=== PATIENT | female | born 1955 | race Caucasian/White ===

== ENCOUNTER 2019-11-13 05:58 | Inpatient (IN) ==
--- NOTE | 2019-10-25 11:29 | PAT Medication Instructions ---
Medication Instructions Date of Service October 25, 2019 Home Medications amlodipine 10 mg PO HS atorvastatin 10 mg PO HS calcium carbonate [Calcium 600] 600 mg PO HS gabapentin 300 mg PO HS ibuprofen 200 mg PO Q6H PRN lisinopril-hydrochlorothiazide 1 tab PO QAM metoprolol succinate 50 mg PO HS multivitamin 1 tab PO QAM cholecalciferol (vitamin D3) [Vitamin D3] 25 mcg PO BID ASK your surgeon for instructions ibuprofen 200 mg PO Q6H PRN DO NOT take the morning of surgery lisinopril-hydrochlorothiazide 1 tab PO QAM multivitamin 1 tab PO QAM cholecalciferol (vitamin D3) [Vitamin D3] 25 mcg PO BID Take evening before surgery amlodipine 10 mg PO HS atorvastatin 10 mg PO HS calcium carbonate [Calcium 600] 600 mg PO HS gabapentin 300 mg PO HS metoprolol succinate 50 mg PO HS cholecalciferol (vitamin D3) [Vitamin D3] 25 mcg PO BID Other Notes If you have any questions please call us at [phone] or [phone] or [phone] or [phone]
--- NOTE | 2019-10-26 10:52 | Anesthesiology Consultation ---
Date of Service October 26, 2019 Assessment & Plan (1) Encounter for pre-operative examination: COVID Status: As of 10/25 assessment, patient denies travel to endemic area, known exposure/sick contacts, or symptoms of COVID19. Patient instructed that they and their household members must follow strict social distancing guidelines, wear a mask in public and avoid travel for 14 days prior to surgery. Preoperative COVID19 testing to be completed prior to surgery per surgeon's arra ngements. Patient made aware to self-isolate as much as possible between COVID testing and surgery. Chart Review Chart Review: Acceptable Risk for Surgery and Patient seen in Pre Admission Testing Teaching & Discussion Instructed NPO after midnight before surgery, except medications with 15 cc of water. Medication instructions provided according to the PAT guidelines. History Surgery Operation Date: 11/13/19 10:05 Proposed Procedures p L3-S1 Decompression fusion, L4-L5 Hardware Removal Spinal Cord Monitoring - Estevan Castillo, Height/Weight Height: 5 ft 4 in Weight: 94.9 kg Allergies Allergy/AdvReac Type Severity Reaction Status Date / Time Iodinated Contrast Media Allergy itchy Verified 10/18/19 09:17 Medications Home Medications Medication Instructions Recorded Confirmed Last Taken amlodipine 10 mg PO HS 02/28/19 10/18/19 03/15/19 22:00 atorvastatin 10 mg PO HS 02/28/19 10/18/19 03/15/19 22:00 calcium carbonate [Calcium 600] 600 mg PO HS 02/28/19 10/18/19 03/15/19 22:00 gabapentin 300 mg PO HS 02/28/19 10/18/19 03/15/19 20:00 ibuprofen 200 mg PO Q6H PRN 02/28/19 10/18/19 03/15/19 03:00 lisinopril-hydrochlorothiazide 1 tab PO QAM 02/28/19 10/18/19 03/15/19 08:00 metoprolol succinate 50 mg PO HS 02/28/19 10/18/19 03/15/19 22:00 multivitamin 1 tab PO QAM 02/28/19 10/18/19 03/15/19 08:00 cholecalciferol (vitamin D3) 25 mcg PO BID 10/18/19 10/18/19 Unknown [Vitamin D3] Past Medical History Medical History History of depression Hyperlipidemia Hypertension Osteoarthritis Spinal stenosis Exercise / Class Metabolic Activity II 4-5 Yardwork/Stairs/Walk up hill Past Family History Family History Mother Family history of diabetes mellitus Grandmother (Maternal) Family history of diabetes mellitus Other No family history of adverse response to anesthesia Past Surgical History Surgical History History of arthroscopy of left knee 03/16/2019 [place] History of colonoscopy History of lumbar fusion History of tooth extraction History of tubal ligation Past Anesthesia History No Hx of Anesthesia Complications and No Family Hx of Anesthesia Complications History of PONV No Hx of PONV and No Hx of Motion Sickness Social History Smoking Status: Former smoker Do You Dip or Chew Tobacco: No Smoking End Date: quit 2010 Hx Alcohol Use: Yes alcohol intake frequency: holidays/special occasions only Hx Substance Use: No substance use type: does not use Review of Systems Pt denies any recent chest pain, shortness of breath, palpitations, cough, fever, URI, or uncontrolled acid reflux. Physical Exam Vital Signs BP: 126/78 P: 56bpm SPO2: 98% RA T: 98.3 F R: 16 ENMT Mouth: + dentition abnormality (missing many lower molars); no chipped teeth and no loose teeth Thyromental Distance: > or= 3.5 Finger Breadths Mallampati Class: II Neck normal visual inspection; neck extension not limited Respiratory normal respiratory effort Auscultation: lungs clear to auscultation bilaterally Cardiovascular Rate/Rhythm: regular rhythm and + bradycardic Heart Sounds: no murmur Extremities: no edema Testing Laboratory Results 10/26/19 11:01 10/26/19 11:01 PT 10.3 Seconds (9.0-12.0) 10/26/19 11:01 INR 1.0 (0.9-1.1) 10/26/19 11:01 APTT 27.9 Seconds (21.0-31.0) 10/26/19 11:01 Urine Color Yellow 10/26/19 Unknown Urine Appearance Clear (Clear) 10/26/19 Unknown Urine pH 7.0 (4.5-7.5) 10/26/19 Unknown Ur Specific [place] 1.010 (1.000-1.030) 10/26/19 Unknown Urine Protein Negative (Negative) 10/26/19 Unknown Urine Glucose (UA) Negative (Negative) 10/26/19 Unknown Urine Ketones Negative (Negative) 10/26/19 Unknown Urine Nitrite Negative (Negative) 10/26/19 Unknown Ur Leukocyte Esterase Trace (Negative) H 10/26/19 Unknown Urine WBC (Auto) 5-10 /hpf (0-5) H 10/26/19 Unknown Urine RBC (Auto) 0-4 /hpf (0-4) 10/26/19 Unknown U Hyaline Cast (Auto) 0 /lpf (0-5) 10/26/19 Unknown U Epithel Cells (Auto) 0-5 /lpf (0-5) 10/26/19 Unknown Urine Bacteria (Auto) Negative (Negative) 10/26/19 Unknown Blood Type AB Positive 10/26/19 11:01 Antibody Screen NEGATIVE 10/26/19 11:01 Electrocardiogram Date: 02/14/19 Findings: + NSR @ (73bpm) Possible LAE. Chest X-Ray Date: 02/14/19 Findings: + NAD
[2019-10-26 12:20] LABS: Basophils # (auto) 0.04 K/uL (0-0.2); Basophils % (auto) 0.5 %; Eosinophils # (auto) 0.12 K/uL (0-0.5); Eosinophils % (auto) 1.6 %; Hemoglobin 14.1 g/dL (12.0-16.0); Immature Granulocytes # (auto) 0.01 K/uL (0.00-0.02); Immature Granulocytes % (auto) 0.1 %; Lymphocytes # (auto) 3.03 K/uL (1.2-3.4); Lymphocytes % (auto) 41.3 %; Mean Corpuscular Hgb Conc 32.8 g/dL (32-36); Mean Corpuscular Volume 88.3 fL (80-100); Mean Platelet Volume 9.9 fL (7.4-10.4); Monocytes # (auto) 0.48 K/uL (0.11-0.59); Monocytes % (auto) 6.5 %; Neutrophils # (auto) 3.66 K/uL (1.4-6.5); Platelet Count 342 K/uL (130-400); RDW Coefficient of Variation 13.7 % (11.5-14.5); RDW Standard Deviation 44.3 fL (36.4-46.3); Red Blood Count 4.87 M/uL (4.2-5.4); White Blood Count 7.34 K/uL (4.8-10.8)
[2019-10-26 12:24] LABS: Appearance Urine Clear (Clear); Bacteria Urine Automated Negative (Negative); Bilirubin Urine Negative (Negative); Blood Urine Negative (Negative); Cast Urine Automated 0 /lpf (0-5); Color Urine Yellow; Epithelial Cell Urine Auto 0-5 /lpf (0-5); Glucose Urine UA Negative (Negative); Ketones Urine Negative (Negative); Leukocyte Esterase Urine Trace (Negative); Nitrite Urine Negative (Negative); Protein Urine Negative (Negative); RBC Urine Automated 0-4 /hpf (0-4); Urobilinogen Urine Negative (Negative)
[2019-10-26 12:31] LABS: Partial Thromboplastin Time 27.9 Seconds (21.0-31.0); Prothrombin Time 10.3 Seconds (9.0-12.0)
[2019-10-26 12:33] LABS: BUN Creatinine Ratio 17.5 (10-20); Calcium 10.1 mg/dl (8.5-10.1); Creatinine Clr Calc Pharmacy 84.7 ml/min; Est GFR (African American) 98.5; Potassium 4.5 mmol/L (3.5-5.1)
[2019-11-13] MEDS ORDERED: CeleBREX 200 MG CAP PO SCH (06:00)
[2019-11-13] MEDS ORDERED: GABAPENTIN 300 MG CAP PO SCH (06:00)
[2019-11-13] MEDS ORDERED: LR 15ML/HR IV SCH (06:00)
[2019-11-13] MEDS ORDERED: ACETAMINOPHEN 500 MG TAB PO SCH (06:00)
[2019-11-13] MEDS ORDERED: CEFAZOLIN 2000MG 2,000 MG/15 ML SYR IV SCH (06:00)
[2019-11-13] MEDS ORDERED: BUPIVACAINE 0.5 % 5 MG/1 ML MPF 30ML VIAL ONE (07:01)
[2019-11-13] MEDS ORDERED: EPINEPHrine INJ 1 MG/ML AMP ONE (07:01)
[2019-11-13] MEDS ORDERED: BACITRACIN INJ 50,000 UNIT VIAL ONE (07:01)
[2019-11-13] MEDS ORDERED: fentaNYL citrate 100 MCG/2 ML VIAL ONE (07:04)
[2019-11-13] MEDS ORDERED: MIDAZOLAM HCL 1 MG/ML 2ML VIAL ONE (07:04)
[2019-11-13] MEDS ORDERED: ATROPINE SULFATE 0.1 MG/ML 10ML SYR IV PRN (07:20)
[2019-11-13] MEDS ORDERED: ONDANSETRON INJ 2 MG/ML 2 ML VIAL IV PRN ×2 (07:20→11:24)
[2019-11-13] MEDS ORDERED: ePHEDrine sulfate 50 MG/ML AMP IV PRN (07:20)
[2019-11-13] MEDS ORDERED: fentaNYL citrate 100 MCG/2 ML VIAL IV PRN (07:20)
--- NOTE | 2019-11-13 07:31 | History & Physical Bridge Note ---
Date of Service November 13, 2019 History & Physical Bridge Note I have examined the patient, reviewed the History & Physical and in the interval since the performance of the History & Physical I have noted the following changes of clinical significance: no changes noted
--- NOTE | 2019-11-13 07:32 | History & Physical Report ---
Date of Service November 13, 2019 Assessment & Plan (1) Neurogenic claudication due to lumbar spinal stenosis: Admission and Anticipated Discharge Date Admission Date: Lumbar decompression fusion L3-4 L5-S1, L4-L5 hardware removal History of Present Illness Chief Complaint: Back and bilateral leg pain Primary Care Provider: Alan Devine This is a 64-year-old female well-known to me the presents with chronic persistent back and leg pain after failing course of nonoperative care is here for surgical intervention. Allergies Allergy/AdvReac Type Severity Reaction Status Date / Time Iodinated Contrast Media Allergy itchy Verified 11/13/19 06:15 Home Medications Home Medications Medication Instructions Recorded Confirmed Type amlodipine 10 mg PO HS 02/28/19 11/13/19 History atorvastatin 10 mg PO HS 02/28/19 11/13/19 History calcium carbonate [Calcium 600] 600 mg PO HS 02/28/19 11/13/19 History gabapentin 300 mg PO HS 02/28/19 11/13/19 History lisinopril-hydrochlorothiazide 1 tab PO QAM 02/28/19 11/13/19 History metoprolol succinate 50 mg PO HS 02/28/19 11/13/19 History multivitamin 1 tab PO QAM 02/28/19 10/18/19 History cholecalciferol (vitamin D3) 25 mcg PO BID 10/18/19 11/13/19 History [Vitamin D3] Past Med/Surg History Medical History History of depression Hyperlipidemia Hypertension Osteoarthritis Spinal stenosis Surgical History History of arthroscopy of left knee 03/16/2019 [place] History of colonoscopy History of lumbar fusion History of tooth extraction History of tubal ligation Family History Mother Family history of diabetes mellitus Grandmother (Maternal) Family history of diabetes mellitus Other No family history of adverse response to anesthesia Social History Smoking Status: Former smoker Smoking End Date: quit 2010; Second Hand Exposure: Yes ( was a smoker ( 13 years ago)); Do You Dip or Chew Tobacco: No; Tobacco Cessation Education Requested by Patient: No Hx Alcohol Use: Yes Hx Substance Use: No Preferred Language: Macedonian Communication Ability: Effective Opinion Polls Survey Worker Required: No Beliefs That Will Affect Care: None Current Living Situation: Alone Feels Safe at Home: Yes Safety Concerns: Feels Safe At This Time Physical Exam Physical Exam: Patient is alert and oriented neurologically intact. Heart regular rate and rhythm. Lungs clear to auscultation. Results & Data ([facility]) Vital Signs (Past 12 Hours) Vital Signs Temp Pulse Resp BP Pulse Ox 11/13/19 06:28 36.7 C 59 L 16 137/61 99
[2019-11-13] MEDS ORDERED: GLYCOPYRROLATE 0.2 MG/ML VIAL ONE (09:35)
[2019-11-13] MEDS ORDERED: ROCURONIUM BROMIDE 10 MG/ML 5 ML VIAL IV ONE (09:35)
[2019-11-13] MEDS ORDERED: LIDOCAINE HCL 2% 2 ML VIAL/AMP(20MG/ML) INFIL ONE (09:35)
[2019-11-13] MEDS ORDERED: PROPOFOL IV EMULSION 10 MG/ML 20 ML VIAL IV ONE (09:35)
[2019-11-13] MEDS ORDERED: SUCCINYLCHOLINE CHLORIDE 20 MG/ML 10 ML VIAL IV ONE (09:35)
[2019-11-13] MEDS ORDERED: NEOSTIGMINE METHYLSULFATE 1 MG/ML 10ML VIAL ONE (09:35)
[2019-11-13] MEDS ORDERED: ONDANSETRON INJ 2 MG/ML 2 ML VIAL ONE (09:35)
[2019-11-13] MEDS ORDERED: DEXAMETHASONE SOD INJ 4 MG/ML VIAL ONE (09:35)
[2019-11-13] MEDS ORDERED: HYDROmorphone INJ 2 MG/ML SYR/VIAL ONE (09:35)
[2019-11-13] MEDS ORDERED: FLOSEAL HEMOSTATIC MATRIX 10ML TOP ONE (10:01)
--- NOTE | 2019-11-13 10:05 | Operative Report ---
Post Operative Report Pre & Post Diagnosis Operation Date: 11/13/19 07:45 Pre-Op Diagnosis: Spinal Stenosis, Lumbar Region with Neurogenic Claudication Post-Op Diagnosis: Spinal Stenosis, Lumbar Region with Neurogenic Claudication I identified the patient and participated in the time-out.: Yes Procedure Operation Date: 11/13/19 07:45 Actual Procedures #1 removal of posterior instrumentation L4-5 per #2 exploration of fusion L4-5. #3 lumbar decompression with bilateral medial facetectomies and foraminotomies L2-3, L3-4 and L5-S1. #4 posterior spinal fusion L3-4 and L5-S1. #5 placement posterior segmental instrumentation L3-S1. #6 interbody fusion L3-4 and L4-5. #7 placement peek cage 12 x 22 mm at L3-4 and L4-5. #8 placement locally harve sted morselized autograft in the posterior gutters. #9 placement infuse collagen sponge plan master graft in the posterior lateral gutters and ostial amp and interbody space. Surgeon Estevan Castillo, Electro Tech Krissy Pierson Estimated Blood Loss 250 Findings See Below Patient is 5 foot 4 inches tall weighing over 94 kg with a BMI in excess of 35. Patient's body habitus did add significant technical difficulty requiring her deepest retractors and longus instruments in order to perform her procedure. This at least 50% increase to the operative time. Specimens None Indications This is a 64-year-old female who presents with above-mentioned diagnosis after failing a course of nonoperative care is here for the above-mentioned procedure. Description of Procedure Patient was met with identified informed consent obtained. Patient was then taken to the operative suite underwent an patient placed in a prone position the Young table on top of the River frame. All bony prominences well-padded eyes inspected to ensure no external pressure placed upon the. This point the lumbar spine is prepped and draped in a normal sterile fashion. Sharp dissection with the assistance of Bovie cautery was performed down to and exposing the lamina and transverse processes of L3 the instrumentation at L4 and L5 and the sacral ala bilaterally. I then proceeded move the hardware at L4 and L5 bilaterally explore the fusion mass noting it to be mature and intact. And then performed a complete laminectomy of L5 putting bilateral medial facetectomies and foraminotomies followed by complete laminectomy of L3 partial laminectomy of L2 again addressing medial facetectomies and foraminotomies to address all stenosis. Pedicle screws and placed in L3-L4-L5 and S1 levels and appropriate size radha placed. By way of a transforaminal approach on the left complete discectomy of L5-S1 was performed endplates curetted to subcortical bleeding bone and a 12 x 22 mm peek cage filled with osteo-bone graft tapped in position. Then proceeded to L3-[address] of a transforaminal approach on the left complete discectomy was performed endplates curetted to subcortical bleeding bone and a 12 x 22 mm peek cage filled osteo-bone graft tapped in position. The rods were then locked into final position bilaterally. The transverse processes of L2-3 L4-L5 and the sacral ala burred to subcortical bleeding bone. Infuse collagen sponge master graft local autograft was placed in the posterior gutters. 15 round MARCELINO drain inserted. Incision was then closed with 1 Vicryl in the fascia 2-0 Vicryl subcutaneously and 4 Monocryl for final skin closure. Steri-Strip sterile dressings placed. Patient waken taken PACU stable condition. Please note spinal cord monitoring was utilized at the procedure no changes noted. Lastly Krissy Pierson was present at the entire surgery involved the patient positioning complex portions of the surgery and final skin closure. I attest to the content of the Intraoperative Record and any orders documented therein. Any exceptions are noted below.
--- NOTE | 2019-11-13 10:18 | Fluoroscopy Report ---
INTRAOPERATIVE RADIOGRAPHS CLINICAL HISTORY: L3-S1 spinal fusion. Fluoroscopy time: 26 seconds. FINDINGS: 2 spot fluoroscopic views of the lumbar spine are presented. There has been discectomy at L 3-L4, L4-L5, and L5-S1 with laminectomy and posterior fusion from L3-S1. Interpedicular screws are pr esent at all levels. The orthopedic hardware appears intact. IMPRESSION: Intraoperative images from L3-S1 spinal fusion as above. Electronically signed by: Galo Mar M.D. 11/13/2019 10:17 AM
[2019-11-13] MEDS ORDERED: DO NOT ADMINISTER FLU VACCINE PRN (11:24)
[2019-11-13] MEDS ORDERED: ONDANSETRON 4 MG OD TAB PO PRN (11:24)
[2019-11-13] MEDS ORDERED: OXYCODONE HCL IR 5 MG TAB (IMMEDIATE RELEASE) PO PRN (11:24)
[2019-11-13] MEDS ORDERED: bisacodyL 10 MG SUPP PR PRN (11:24)
[2019-11-13] MEDS ORDERED: LORazepam 0.5 MG TAB PO PRN (11:24)
[2019-11-13] MEDS ORDERED: ALUMINUM/MAGNESIUM SUSP 30 ML UDC PO PRN (11:24)
[2019-11-13] MEDS ORDERED: PROMETHAZINE HCL 12.5 MG in SODIUM CHLORIDE 0.9% 50 ML IV PRN (11:24)
[2019-11-13] MEDS ORDERED: NALOXONE HCL 0.4 MG/1 ML VIAL/CARP IV PRN (11:24)
[2019-11-13] MEDS ORDERED: DO NOT ADMINISTER PNEUMOCOCCAL VACCINE PRN (11:24)
[2019-11-13] MEDS ORDERED: HYDROmorphone INJ 0.5 MG/0.5 ML SYR IV PRN (11:24)
[2019-11-13] MEDS ORDERED: FAMOTIDINE 20 MG TAB PO PRN (11:24)
[2019-11-13] MEDS ORDERED: MAGNESIUM HYDROXIDE SUSP 30 ML UDC PO PRN (11:24)
[2019-11-13] MEDS ORDERED: SOD PHOSPHATE/SOD BIPHOSPHATE ENEMA 132 ML BTL PR PRN (11:24)
[2019-11-13] MEDS ORDERED: HYDROmorphone INJ 1 MG/ML SYRINGE IV PRN (11:24)
[2019-11-13] MEDS ORDERED: LORazepam 0.5 MG/1 ML VIAL IV PRN (11:24)
[2019-11-13] MEDS ORDERED: METOCLOPRAMIDE HCL INJ 5 MG/ML 2 ML VIAL IV PRN (11:24)
--- NOTE | 2019-11-13 11:46 | Anesthesiology Progress Note ---
Date of Service November 13, 2019 Anesthesia Post Procedure Vital Signs Vital Signs: Temp Pulse Pulse Resp BP BP Pulse Ox 11/13/19 11:20 97.3 F L 59 L 18 126/73 100 11/13/19 11:05 97.3 F L 57 L 16 122/61 97 11/13/19 10:50 58 L 18 121/57 L 96 11/13/19 10:40 67 18 133/64 96 11/13/19 10:30 61 15 127/63 96 11/13/19 10:24 97.0 F L 73 16 125/64 99 11/13/19 06:28 98.1 F 59 L 16 137/61 99 Pain Intensity Back: Pain Intensity: 4 Transfer of Care Handoff Completed per policy Notes Mental Status: alert / awake / arousable and participated in evaluation Patient Amnestic to Procedure: Yes Nausea / Vomiting: adequately controlled Pain: adequately controlled Airway Patency, RR, SpO2: stable & adequate BP & HR: stable & adequate Hydration State: stable & adequate Anesthetic Complications: no major complications apparent and Pt Satisfied with anesthetic care
--- NOTE | 2019-11-13 11:56 | Consultation ---
Date of Consultation November 13, 2019 Assessment & Plan (1) Status post lumbar surgery: Post op day# 0 S/P removal instrumentation L4-L5, decompression L2-S1 & fusion L3-S1 by Dr Castillo EB#[id number] -pain management per ortho -wound management per ortho -PT/OT as appropriate -DVT prophylaxis per ortho -incentive spirometry -monitor H&H for acute blood loss anemia; pre-op Hgb: 14 (2) Hypertension: Stable -Continue metoprolol succinate, amlodipine -Hold lisinopril/HCTZ for tomorrow (3) Hyperlipidemia: -Continue atorvastatin DVT Prophylaxis -SCDs per ortho Disposition per primary service Follows with Dr Devine for routine care Pt was seen and care coordinated with Dr Kendrick. See addendum Pt will be followed by Dr Hankins starting 11/14/2019. Thank you for this consultation. We will follow the patient with you during their hospital stay. You can reach a [facility] via pager @ [phone]. Supervising Physician Co-Signing Physician Notes Pt was seen and examined. Agreed with Liana MANDUJANO exam, assessment and plan. 64 y/o F with PMH HTN, HLD, depression, s/p L2-S1 decompression fusion performed today by Dr. Castillo. Denies any chest pain, palpitation, dizziness and SOB. No postop complication. Continue pain management as per ortho. PT/OT evaluation. Monitor H/H. Continue incentive spirometry. Fall precaution. Continue monitor closely. MD Mireille History of Present Illness Requesting Physician: Dr Castillo Reason for Consultation: Post op medical management Attending Physician: Estevan Castillo DO History of Present Illness Pt is 64 y/o F with PMH HTN, HLD, depression seen in medical consultation s/p L2-S1 decompression fusion today by Dr. Castillo. Postop patient reports having some low back pain. Denies any extremity pain or paresthesias. Denies nausea, vomiting, CP, SOB, dizziness. Last BM 11/12/2019. Has Ortega cath in place. Denies fever/chills, diaphoresis, FONTANEZ, vision changes, neck pain, palpitations, cough, sore throat, choking, abdominal pain, extremity edema, rashes, urinary symptoms. Allergies Allergy/AdvReac Type Severity Reaction Status Date / Time Iodinated Contrast Media Allergy itchy Verified 11/13/19 06:15 Home Medications Home Medications Medication Instructions Recorded Confirmed Type amlodipine 10 mg PO HS 02/28/19 11/13/19 History atorvastatin 10 mg PO HS 02/28/19 11/13/19 History calcium carbonate [Calcium 600] 600 mg PO HS 02/28/19 11/13/19 History gabapentin 300 mg PO HS 02/28/19 11/13/19 History lisinopril-hydrochlorothiazide 1 tab PO QAM 02/28/19 11/13/19 History metoprolol succinate 50 mg PO HS 02/28/19 11/13/19 History multivitamin 1 tab PO QAM 02/28/19 10/18/19 History cholecalciferol (vitamin D3) 25 mcg PO BID 10/18/19 11/13/19 History [Vitamin D3] oxycodone 5 mg PO Q6H PRN #20 tab 11/13/19 Rx tramadol 50 mg PO Q6H PRN #20 tab 11/13/19 Rx Patient History Medical History (Updated 11/13/19 @ 11:55 by Liana Latham PA-C) History of depression Hyperlipidemia Hypertension Osteoarthritis Spinal stenosis Surgical History (Updated 11/13/19 @ 12:04 by Liana Latham PA-C) History of arthroscopy of left knee 03/16/2019 [place] History of colonoscopy History of lumbar fusion History of tooth extraction History of tubal ligation Family History Mother Family history of diabetes mellitus Grandmother (Maternal) Family history of diabetes mellitus Other No family history of adverse response to anesthesia Social History Smoking Status: Former smoker Smoking End Date: quit 2010; Second Hand Exposure: Yes ( was a smoker ( 13 years ago)); Do You Dip or Chew Tobacco: No; Tobacco Cessation Education Requested by Patient: No Hx Alcohol Use: Yes Hx Substance Use: No Preferred Language: [place] Verdean Communication Ability: Effective It Web Development Consultant Required: No Beliefs That Will Affect Care: None Current Living Situation: Alone Feels Safe at Home: Yes Safety Concerns: Feels Safe At This Time Review of Systems Review of Systems: All systems reviewed & are unremarkable except as noted in HPI & below Physical Exam Physical Exam: General: no distress, overweight Head: normocephalic, atraumatic Eyes: conjunctiva non-injected, anicteric ENT: normal inspection external ears, nose, mucous membranes moist Neck: supple, trachea midline Lungs: clear, no respiratory distress, no wheezing/rhonchi/rales CV: RRR, no murmur, no pretibial edema Abd: normal BS, soft, non-tender Back: surgical dressing in place, MARCELINO drain with serosanguineous drainage Ext: no calf tenderness; bilateral pedal pushes and pulls intact Neuro: A&O x 3, no focal deficits noted, normal affect Skin: warm, dry Results & Data ([facility]) Vital Signs (Past 12 Hours) Vital Signs Temp Pulse Pulse Resp BP BP Pulse Ox 11/13/19 11:20 36.3 C L 59 L 18 126/73 100 11/13/19 11:05 36.3 C L 57 L 16 122/61 97 11/13/19 10:50 58 L 18 121/57 L 96 11/13/19 10:40 67 18 133/64 96 11/13/19 10:30 61 15 127/63 96 11/13/19 10:24 36.1 C L 73 16 125/64 99 11/13/19 06:28 36.7 C 59 L 16 137/61 99
[2019-11-13] MEDS: TRAMADOL HCL 50 MG TABLET PO PRN ×2 (12:53→20:44)
[2019-11-13] MEDS: SODIUM CHLORIDE 0.9% 1000ML 1,000 ML IV SCH ×2 (12:53→20:44)
[2019-11-13] MEDS ORDERED: ACETAMINOPHEN 1,000 MG/100 ML VIAL IV PRN (14:00)
[2019-11-13] MEDS: CEFAZOLIN 2000MG 2,000 MG/15 ML SYR IV SCH ×2 (16:18→23:51)
[2019-11-13] MEDS: CALCIUM CARBONATE 1250MG TAB PO SCH (20:42)
[2019-11-13] MEDS: AMLODIPINE BESYLATE 5 MG TAB PO SCH (20:42)
[2019-11-13] MEDS: GABAPENTIN 300 MG CAP PO SCH (20:43)
[2019-11-13] MEDS: ATORVASTATIN 10 MG TAB PO SCH (20:43)
[2019-11-13] MEDS: CHOLECALCIFEROL 1,000 UNITS 25 MCG TAB PO SCH (20:43)
[2019-11-13] MEDS: METOPROLOL SUCC 50MG EXT REL TAB PO SCH (20:43)
[2019-11-13] MEDS: DOCUSATE SODIUM/SENNA 50/8.6MG TAB PO SCH (20:44)
[2019-11-14] MEDS: POLYETHYLENE (MIRALAX) 17 GM PACK PO SCH ×3 (05:47→17:28)
[2019-11-14 06:16] LABS: Hematocrit (blood only) 35.1 % (37-47); Hemoglobin 11.1 g/dL (12.0-16.0); Immature Granulocytes # (auto) 0.02 K/uL (0.00-0.02); Immature Granulocytes % (auto) 0.1 %; Lymphocytes # (auto) 1.77 K/uL (1.2-3.4); Lymphocytes % (auto) 12.4 %; Mean Corpuscular Hemoglobin 28.3 pg (25-34); Mean Corpuscular Hgb Conc 31.6 g/dL (32-36); Mean Corpuscular Volume 89.5 fL (80-100); Mean Platelet Volume 9.9 fL (7.4-10.4); Monocytes % (auto) 6.3 %; Neutrophils % (auto) 81.2 %; Platelet Count 313 K/uL (130-400); RDW Coefficient of Variation 14.3 % (11.5-14.5); RDW Standard Deviation 46.9 fL (36.4-46.3); Red Blood Count 3.92 M/uL (4.2-5.4); White Blood Count 14.29 K/uL (4.8-10.8)
[2019-11-14 06:49] LABS: BUN Creatinine Ratio 17.2 (10-20); Calcium 8.8 mg/dl (8.5-10.1); Creatinine Clr Calc Pharmacy 115.8 ml/min; Est GFR (African American) 114.8; Potassium 3.7 mmol/L (3.5-5.1)
[2019-11-14] MEDS: MULTIVITAMIN TAB PO SCH (08:32)
[2019-11-14] MEDS: CHOLECALCIFEROL 1,000 UNITS 25 MCG TAB PO SCH ×2 (08:32→20:27)
--- NOTE | 2019-11-14 08:38 | Hospitalist Progress Note ---
Date of Service November 14, 2019 Assessment & Plan (1) Status post lumbar surgery: Post op day# 1 S/P removal instrumentation L4-L5, decompression L2-S1 & fusion L3-S1 by Dr Castillo EBL 250ml; MARCELINO drain 450ml tolerated procedure well pain/wound management per ortho activity and therapy as directed by ortho continue to encourage incentive spirometry, on room air DVT prophylaxis per ortho (2) Anemia: pre op hgb 14, h&H 11.1 and 35.1 likely in setting of acute blood loss anemia as well as dilutional component (3) Leukocytosis: wbc 14.29k, afebrile like in setting of pre op steroids/surgery no s/sx of infection, monitor (4) Hypertension: blood pressure on low side 111/66 Continue metoprolol succinate, amlodipine with parameters Continue to hold lisinopril/HCTZ - reassess daily and resume when appropriate (5) Hyperlipidemia: Continue atorvastatin DVT Prophylaxis SCDs per ortho Disposition per primary service Follows with Dr Devine for routine care Pt was seen and care coordinated with Dr Hankins. See addendum Thank you for this consultation. We will follow the patient with you during their hospital stay. You [facility] via pager @ [phone]. Admission and Anticipated Discharge Date Admission Date: November 13, 2019 Supervising Physician Co-Signing Physician Notes Pt seen and examined by me, care coordinated with Hyacinth Patrick PA-C, please refer to her note above for further detail. Pt is a 64 y/o F with PMH HTN, HLD, depression, s/p L2-S1 decompression fusion performed by Dr. Castillo. Patient is currently sitting in a chair, comfortable, denies any chest pain, palpitation, dizziness and SOB. She has been ambulating in the hallway. Eduardo catheter was removed and she is voiding without difficulty. Continue pain management as per ortho. PT/OT evaluation. Monitor H/H. Continue incentive spirometry. Brent Hankins MD Subjective Pt seen and examined in room 324-1. Follow up Lumbar surgery by Dr. Castillo. Feels well this morning. Complains of back tightness and mild incisional discomfort, but otherwise feels well. So far tolerating regular diet this morning. Denies f/c/s, dizzy, CP, SOB, n/v/d. No flatus yet. She has eduardo cath in place. She is ready to begin therapy so she can go home. Review of Systems Review of Systems: All systems reviewed & are unremarkable except as noted in HPI & below Physical Exam Physical Exam: Gen: WD/WN, F, lying in bed, NAD, A&O x3 HEENT: Normocephalic, atraumatic, conjunctivae moist, sclerae anicteric, mucous membranes moist. Lung: Clear to Auscultation bilaterally, no wheezes/rales/rhonchi Heart: Regular rate, regular rhythm, no murmurs, rubs, or gallops Abdomen: Soft, NT, ND +BS x 4 Extremities: No edema, lumbar dressing CDI, MARCELINO Drain with serosanguineous drainage Skin: Warm, no rash, negative turgor. : eduardo cath in place with yellow urine Results & Data Results & Data ([facility]) Vital Signs (Past 12 Hours) Vital Signs Temp Pulse Resp BP Pulse Ox 11/14/19 07:05 36.4 C L 53 L 16 111/66 95 11/14/19 02:39 36.7 C 68 16 112/66 97 11/13/19 23:48 36.6 C 77 16 116/64 98 11/13/19 20:39 68 16 125/72 95 Laboratory Results Short CBC 11/14/19 Range/Units 05:14 WBC 14.29 H (4.8-10.8) K/uL Hgb 11.1 L (12.0-16.0) g/dL Hct 35.1 L (37-47) % Plt Count 313 (130-400) K/uL BMP 11/14/19 05:14 Sodium 138 Potassium 3.7 Chloride 106 Carbon Dioxide 27 BUN 9 Creatinine 0.54 L Glucose 105 H Calcium 8.8 Medications Administered Amlodipine Besylate (Amlodipine Besylate 5 Mg Tab) 10 mg PO HS KEITH Stop: 12/13/19 20:59 Last Admin: 11/13/19 20:42 Dose: 10 mg Documented by: [id number] Atorvastatin Calcium (Atorvastatin 10 Mg Tab) 10 mg PO HS KEITH Stop: 12/13/19 20:59 Last Admin: 11/13/19 20:43 Dose: 10 mg Documented by: [id number] Calcium Carbonate (Calcium Carbonate 1250mg Tab) 1,250 mg PO HS KEITH Stop: 12/13/19 20:59 Last Admin: 11/13/19 20:42 Dose: 1,250 mg Documented by: [id number] Gabapentin (Gabapentin 300 Mg Cap) 300 mg PO HS KEITH Stop: 12/13/19 20:59 Last Admin: 11/13/19 20:43 Dose: 300 mg Documented by: [id number] Acetaminophen (Ofirmev) 1,000 mg in 100 mls @ 400 mls/hr IV Q8H PRN PRN Reason: MILD Pain Rating 1,2,3 Stop: 11/14/19 13:59 Last Infusion: 11/14/19 01:57 Dose: 0 mls/hr Documented by: [id number] Admin: 11/14/19 00:22 Dose: 400 mls/hr Documented by: [id number] Metoprolol Succinate (Metoprolol Succ 50mg Ext Rel Tab) 50 mg PO HS KEITH Stop: 12/13/19 20:59 Last Admin: 11/13/19 20:43 Dose: 50 mg Documented by: [id number] Multivitamins (Multivitamin Tab) 1 tab PO QAM KEITH Stop: 12/14/19 08:59 Last Admin: 11/14/19 08:32 Dose: 1 tab Documented by: [id number] Polyethylene Glycol (Polyethylene (Miralax) 17 Gm Pack) 17 gm PO Q6 KEITH Stop: 12/14/19 05:59 Last Admin: 11/14/19 05:47 Dose: 17 gm Documented by: [id number] Senna/Docusate Sodium (Docusate Sodium/Senna 50/8.6mg Tab) 2 tab PO HS KEITH Stop: 12/13/19 20:59 Last Admin: 11/13/19 20:44 Dose: 2 tab Documented by: [id number] Tramadol HCl (Tramadol Hcl 50 Mg Tablet) 50 - 100 mg PO Q4H PRN PRN Reason: Moderate-Severe Pain & Pre PT Stop: 12/13/19 11:23 Last Admin: 11/13/19 20:44 Dose: 100 mg Documented by: [id number] Admin: 11/13/19 12:53 Dose: 100 mg Documented by: [id number] Vitamin D (Cholecalciferol 1,000 Units 25 Mcg Tab) 1,000 units PO BID KEITH Stop: 12/13/19 20:59 Last Admin: 11/14/19 08:32 Dose: 1,000 units Documented by: [id number] Admin: 11/13/19 20:43 Dose: 1,000 units Documented by: [id number] Discontinued Medications Acetaminophen (Acetaminophen 500 Mg Tab) 1,000 mg PO PREOP KEITH Stop: 11/13/19 18:00 Last Admin: 11/13/19 06:39 Dose: 1,000 mg Documented by: [id number] Bacitracin (Bacitracin Inj 50,000 Unit Vial) Confirm Administered Dose 50,000 units .ROUTE .STK-MED ONE Stop: 11/13/19 07:02 Last Admin: 11/13/19 08:42 Dose: 50,000 units Documented by: [id number] Bupivacaine HCl (Bupivacaine 0.5 % 5 Mg/1 Ml Mpf 30ml Vial) Confirm Administered Dose 30 ml .ROUTE .STK-MED ONE Stop: 11/13/19 07:02 Last Admin: 11/13/19 08:42 Dose: 30 ml Documented by: [id number] Celecoxib (Celebrex 200 Mg Cap) 200 mg PO PREOP KEITH Stop: 11/13/19 18:00 Last Admin: 11/13/19 06:39 Dose: 200 mg Documented by: [id number] Epinephrine HCl (Epinephrine Inj 1 Mg/Ml Amp) Confirm Administered Dose 1 mg .ROUTE .STK-MED ONE Stop: 11/13/19 07:02 Last Admin: 11/13/19 08:41 Dose: 0.15 mg Documented by: [id number] Gabapentin (Gabapentin 300 Mg Cap) 300 mg PO PREOP KEITH Stop: 11/13/19 18:00 Last Admin: 11/13/19 06:39 Dose: 300 mg Documented by: [id number] Cefazolin Sodium (Ancef 2000mg) 2,000 mg in 15 mls @ 3.75 mls/min IV PREOP KEITH; Protocol Stop: 11/13/19 18:00 Last Admin: 11/13/19 07:42 Dose: 3.75 mls/min Documented by: [id number] Lactated Ringer's (Lr) 1,000 mls @ 15 mls/hr IV .Q24H KEITH Stop: 11/14/19 05:59 Last Infusion: 11/13/19 07:42 Dose: 0 mls/hr Documented by: [id number] Admin: 11/13/19 06:39 Dose: 15 mls/hr Documented by: [id number] Cefazolin Sodium (Ancef 2000mg) 2,000 mg in 15 mls @ 3.75 mls/min IV Q8H KEITH; Protocol Stop: 11/14/19 00:03 Last Admin: 11/13/19 23:51 Dose: 3.75 mls/min Documented by: [id number] Admin: 11/13/19 16:18 Dose: 3.75 mls/min Documented by: [id number] Sodium Chloride (Nss 1000ml) 1,000 mls @ 100 mls/hr IV .Q10H [facility] Stop: 12/13/19 11:23 Last Infusion: 11/14/19 05:35 Dose: 0 mls/hr Documented by: [id number] Admin: 11/13/19 20:44 Dose: 100 mls/hr Documented by: [id number] Infusion: 11/13/19 20:44 Dose: 100 mls/hr Documented by: [id number] Admin: 11/13/19 12:53 Dose: 100 mls/hr Documented by: [id number] Miscellaneous ( Floseal Hemostatic Matrix 10ml) 10 ml TOP ONCE ONE Stop: 11/13/19 10:02 Last Admin: 11/13/19 10:01 Dose: 20 ml Documented by: [id number]
[2019-11-14] MEDS ORDERED: LISINOPRIL/HCTZ 20/25MG 1 TAB PO SCH (09:00)
[2019-11-14] MEDS: ACETAMINOPHEN 500 MG TAB PO PRN ×2 (10:20→23:55)
--- NOTE | 2019-11-14 13:12 | Orthopedic Progress Note ---
Date of Service November 14, 2019 Assessment & Plan (1) Neurogenic claudication due to lumbar spinal stenosis: Admission and Anticipated Discharge Date Admission Date: November 13, 2019 At this time we will continue physical therapy monitor MARCELINO output anticipate discharge home in the next few days. Subjective Back pain controlled leg symptoms markedly improved. Physical Exam Physical Exam: Patient is good strength testing appears comfortable. Results & Data ([facility]) Vital Signs (Past 12 Hours) Vital Signs Temp Pulse Resp BP Pulse Ox 11/14/19 12:00 36.5 C 53 L 16 105/66 99 11/14/19 07:05 36.4 C L 53 L 16 111/66 95 11/14/19 02:39 36.7 C 68 16 112/66 97
[2019-11-14] MEDS: TRAMADOL HCL 50 MG TABLET PO PRN (17:18)
[2019-11-14] MEDS: DOCUSATE SODIUM/SENNA 50/8.6MG TAB PO SCH (20:23)
[2019-11-14] MEDS: METOPROLOL SUCC 50MG EXT REL TAB PO SCH (20:27)
[2019-11-14] MEDS: GABAPENTIN 300 MG CAP PO SCH (20:27)
[2019-11-14] MEDS: ATORVASTATIN 10 MG TAB PO SCH (20:27)
[2019-11-14] MEDS: CALCIUM CARBONATE 1250MG TAB PO SCH (20:27)
[2019-11-14] MEDS: AMLODIPINE BESYLATE 5 MG TAB PO SCH (20:27)
[2019-11-15] MEDS: TRAMADOL HCL 50 MG TABLET PO PRN ×3 (03:36→15:57)
[2019-11-15 06:10] LABS: Hematocrit (blood only) 32.4 % (37-47); Hemoglobin 10.4 g/dL (12.0-16.0); Mean Corpuscular Hemoglobin 28.9 pg (25-34); Mean Corpuscular Hgb Conc 32.1 g/dL (32-36); Mean Platelet Volume 9.7 fL (7.4-10.4); Platelet Count 263 K/uL (130-400); RDW Coefficient of Variation 14.3 % (11.5-14.5); RDW Standard Deviation 47.3 fL (36.4-46.3); White Blood Count 10.44 K/uL (4.8-10.8)
[2019-11-15 06:38] LABS: BUN Creatinine Ratio 20.4 (10-20); Calcium 8.5 mg/dl (8.5-10.1); Creatinine Clr Calc Pharmacy 99.2 ml/min; Est GFR (African American) 109.1; Est GFR (Non-African American) 94.1; Magnesium 1.7 mg/dl (1.8-2.4); Potassium 3.8 mmol/L (3.5-5.1)
[2019-11-15 06:39] LABS: Phosphorus 2.8 mg/dl (2.5-4.9)
[2019-11-15] MEDS ORDERED: MAGNESIUM OXIDE 400 MG TAB PO ONE (07:51)
[2019-11-15] MEDS: MULTIVITAMIN TAB PO SCH (08:10)
[2019-11-15] MEDS: CHOLECALCIFEROL 1,000 UNITS 25 MCG TAB PO SCH ×2 (08:10→20:54)
[2019-11-15] MEDS: DEXAMETHASONE SOD PHOSPHATE 8 MG in SYRINGE 0 ML IV SCH (08:11)
--- NOTE | 2019-11-15 08:53 | Hospitalist Progress Note ---
Date of Service November 15, 2019 Assessment & Plan (1) Status post lumbar surgery: Post op day# 2 S/P removal instrumentation L4-L5, decompression L2-S1 & fusion L3-S1 by Dr Castillo EBL 250ml; MARCELINO drain 640ml tolerated procedure well pain/wound management per ortho activity and therapy as directed by ortho continue to encourage incentive spirometry, on room air DVT prophylaxis per ortho (2) Anemia: pre op hgb 14, h&H 10.4 and 32.4 likely in setting of acute blood loss anemia as well as dilutional component (3) Hypomagnesemia: mag 1.7 oral mag supplementation ordered (4) Leukocytosis: resolved (5) Hypertension: blood pressure continues to be well controlled, 119/74 Continue metoprolol succinate, amlodipine with parameters Continue to hold lisinopril/HCTZ - reassess daily and resume when appropriate (6) Hyperlipidemia: Continue atorvastatin DVT Prophylaxis SCDs per ortho Disposition per primary service Follows with Dr Devine for routine care Pt was seen and care coordinated with Dr Hankins. See addendum Thank you for this consultation. We will follow the patient with you during their hospital stay. You [facility] via pager @ [phone]. Admission and Anticipated Discharge Date Admission Date: November 13, 2019 Supervising Physician Co-Signing Physician Notes Pt seen and examined by me, care coordinated with Hyacinth Patrick PA-C, please refer to her note above for further detail. Pt is a 64 y/o F with PMH HTN, HLD, depression, s/p L2-S1 decompression fusion performed by Dr. Castillo. Patient is currently sitting in a chair, comfortable, denies any chest pain, palpitation, dizziness and SOB. She has been ambulating in the hallway. Ortega catheter was removed yesterday and she has been voiding without difficulty. CTAB w/o any wheezing, rhonchi or crackles, heart sounds regular, abdomen soft, nontender nondistended positive bowel sounds. Continue pain management as per ortho. PT/OT evaluation. Hemoglobin down to 10.4, patient is without any symptoms. Monitor H/H. Continue incentive spirometry. Brent Hankins MD Subjective Patient was seen and examined in room 324. Follow-up postop day #2 lumbar surgery. She sitting up in bedside chair eating breakfast. She offers no complaints and otherwise feels well. She does have mild incisional discomfort. She is urinating without difficulty but does say she has some slight numbness when she wipes. She denies any incontinence of her bowel or bladder or marcos saddle anesthesia. She is moving her bowels. Tolerating therapy well and plan is to be discharged home tomorrow per patient. She denies fever, chills, sweats, judy st pain, shortness breath, nausea, vomiting, abdominal pain. Review of Systems Review of Systems: All systems reviewed & are unremarkable except as noted in HPI & below Physical Exam Physical Exam: Gen: WD/WN, female, sitting up in bedside chair, NAD, A&O x3 HEENT: Normocephalic, atraumatic, conjunctivae moist, sclerae anicteric, mucous membranes moist. Lung: Clear to Auscultation bilaterally, no wheezes/rales/rhonchi Heart: Regular rate, regular rhythm, no murmurs, rubs, or gallops Abdomen: Soft, NT, ND +BS x 4 Extremities: No edema Skin: Warm, no rash, negative turgor. Lumbar dressing CDI, MARCELINO drain with serosanguineous drainage Results & Data Results & Data ([facility]) Vital Signs (Past 12 Hours) Vital Signs Temp Pulse Resp BP Pulse Ox 11/15/19 08:00 36.6 C 57 L 16 119/74 94 11/14/19 23:00 36.7 C 68 18 116/71 96 Laboratory Results Short CBC 11/15/19 Range/Units 05:43 WBC 10.44 (4.8-10.8) K/uL Hgb 10.4 L (12.0-16.0) g/dL Hct 32.4 L (37-47) % Plt Count 263 (130-400) K/uL BMP 11/15/19 05:43 Sodium 140 Potassium 3.8 Chloride 107 Carbon Dioxide 29 BUN 13 Creatinine 0.63 Glucose 96 Calcium 8.5 Medications Administered Acetaminophen (Acetaminophen 500 Mg Tab) 1,000 mg PO Q8H PRN PRN Reason: MILD Pain Scale 1,2,3 & Pre PT Stop: 12/13/19 13:59 Last Admin: 11/14/19 23:55 Dose: 1,000 mg Documented by: [id number] Admin: 11/14/19 10:20 Dose: 1,000 mg Documented by: [id number] Amlodipine Besylate (Amlodipine Besylate 5 Mg Tab) 10 mg PO [facility] Stop: 12/13/19 20:59 Last Admin: 11/14/19 20:27 Dose: 10 mg Documented by: [id number] Admin: 11/13/19 20:42 Dose: 10 mg Documented by: [id number] Atorvastatin Calcium (Atorvastatin 10 Mg Tab) 10 mg PO KEITH Stop: 12/13/19 20:59 Last Admin: 11/14/19 20:27 Dose: 10 mg Documented by: [id number] Admin: 11/13/19 20:43 Dose: 10 mg Documented by: [id number] Calcium Carbonate (Calcium Carbonate 1250mg Tab) 1,250 mg PO [facility] Stop: 12/13/19 20:59 Last Admin: 11/14/19 20:27 Dose: 1,250 mg Documented by: [id number] Admin: 11/13/19 20:42 Dose: 1,250 mg Documented by: [id number] Gabapentin (Gabapentin 300 Mg Cap) 300 mg PO KEITH Stop: 12/13/19 20:59 Last Admin: 11/14/19 20:27 Dose: 300 mg Documented by: [id number] Admin: 11/13/19 20:43 Dose: 300 mg Documented by: [id number] Dexamethasone Sodium Phosphate (8 mg/ Syringe) 2 mls @ 1 mls/min IV DAILY KEITH Stop: 12/15/19 08:59 Last Admin: 11/15/19 08:11 Dose: 1 mls/min Documented by: [id number] Metoprolol Succinate (Metoprolol Succ 50mg Ext Rel Tab) 50 mg PO KEITH Stop: 12/13/19 20:59 Last Admin: 11/14/19 20:27 Dose: 50 mg Documented by: [id number] Admin: 11/13/19 20:43 Dose: 50 mg Documented by: [id number] Multivitamins (Multivitamin Tab) 1 tab PO QA KEITH Stop: 12/14/19 08:59 Last Admin: 11/15/19 08:10 Dose: 1 tab Documented by: [id number] Admin: 11/14/19 08:32 Dose: 1 tab Documented by: [id number] Senna/Docusate Sodium (Docusate Sodium/Senna 50/8.6mg Tab) 2 tab PO KEITH Stop: 12/13/19 20:59 Last Admin: 11/14/19 20:23 Dose: Not Given Documented by: [id number] Admin: 11/13/19 20:44 Dose: 2 tab Documented by: [id number] Tramadol HCl (Tramadol Hcl 50 Mg Tablet) 50 - 100 mg PO Q4H PRN PRN Reason: Moderate-Severe Pain & Pre PT Stop: 12/13/19 11:23 Last Admin: 11/15/19 03:36 Dose: 50 mg Documented by: [id number] Admin: 11/14/19 17:18 Dose: 50 mg Documented by: [id number] Admin: 11/13/19 20:44 Dose: 100 mg Documented by: [id number] Admin: 11/13/19 12:53 Dose: 100 mg Documented by: [id number] Vitamin D (Cholecalciferol 1,000 Units 25 Mcg Tab) 1,000 units PO BID KEITH Stop: 12/13/19 20:59 Last Admin: 11/15/19 08:10 Dose: 1,000 units Documented by: [id number] Admin: 11/14/19 20:27 Dose: 1,000 units Documented by: [id number] Admin: 11/14/19 08:32 Dose: 1,000 units Documented by: [id number] Admin: 11/13/19 20:43 Dose: 1,000 units Documented by: [id number] Discontinued Medications Acetaminophen (Acetaminophen 500 Mg Tab) 1,000 mg PO PREOP KEITH Stop: 11/13/19 18:00 Last Admin: 11/13/19 06:39 Dose: 1,000 mg Documented by: [id number] Bacitracin (Bacitracin Inj 50,000 Unit Vial) Confirm Administered Dose 50,000 units .ROUTE .STK-MED ONE Stop: 11/13/19 07:02 Last Admin: 11/13/19 08:42 Dose: 50,000 units Documented by: [id number] Bupivacaine HCl (Bupivacaine 0.5 % 5 Mg/1 Ml Mpf 30ml Vial) Confirm Administered Dose 30 ml .ROUTE .STK-MED ONE Stop: 11/13/19 07:02 Last Admin: 11/13/19 08:42 Dose: 30 ml Documented by: [id number] Celecoxib (Celebrex 200 Mg Cap) 200 mg PO PREOP KEITH Stop: 11/13/19 18:00 Last Admin: 11/13/19 06:39 Dose: 200 mg Documented by: [id number] Epinephrine HCl (Epinephrine Inj 1 Mg/Ml Amp) Confirm Administered Dose 1 mg .ROUTE .STK-MED ONE Stop: 11/13/19 07:02 Last Admin: 11/13/19 08:41 Dose: 0.15 mg Documented by: [id number] Gabapentin (Gabapentin 300 Mg Cap) 300 mg PO PREOP KEITH Stop: 11/13/19 18:00 Last Admin: 11/13/19 06:39 Dose: 300 mg Documented by: [id number] Cefazolin Sodium (Ancef 2000mg) 2,000 mg in 15 mls @ 3.75 mls/min IV PREOP KEITH; Protocol Stop: 11/13/19 18:00 Last Admin: 11/13/19 07:42 Dose: 3.75 mls/min Documented by: [id number] Lactated Ringer's (Lr) 1,000 mls @ 15 mls/hr IV .Q24H KEITH Stop: 11/14/19 05:59 Last Infusion: 11/13/19 07:42 Dose: 0 mls/hr Documented by: [id number] Admin: 11/13/19 06:39 Dose: 15 mls/hr Documented by: [id number] Acetaminophen (Ofirmev) 1,000 mg in 100 mls @ 400 mls/hr IV Q8H PRN PRN Reason: MILD Pain Rating 1,2,3 Stop: 11/14/19 13:59 Last Infusion: 11/14/19 01:57 Dose: 0 mls/hr Documented by: [id number] Admin: 11/14/19 00:22 Dose: 400 mls/hr Documented by: [id number] Cefazolin Sodium (Ancef 2000mg) 2,000 mg in 15 mls @ 3.75 mls/min IV Q8H KEITH; Protocol Stop: 11/14/19 00:03 Last Admin: 11/13/19 23:51 Dose: 3.75 mls/min Documented by: [id number] Admin: 11/13/19 16:18 Dose: 3.75 mls/min Documented by: [id number] Sodium Chloride (Nss 1000ml) 1,000 mls @ 100 mls/hr IV .Q10H KEITH Stop: 12/13/19 11:23 Last Infusion: 11/14/19 05:35 Dose: 0 mls/hr Documented by: [id number] Admin: 11/13/19 20:44 Dose: 100 mls/hr Documented by: [id number] Infusion: 11/13/19 20:44 Dose: 100 mls/hr Documented by: [id number] Admin: 11/13/19 12:53 Dose: 100 mls/hr Documented by: [id number] Miscellaneous ( Floseal Hemostatic Matrix 10ml) 10 ml TOP ONCE ONE Stop: 11/13/19 10:02 Last Admin: 11/13/19 10:01 Dose: 20 ml Documented by: [id number] Polyethylene Glycol (Polyethylene (Miralax) 17 Gm Pack) 17 gm PO Q6 KEITH Stop: 12/14/19 05:59 Last Admin: 11/14/19 17:28 Dose: Not Given Documented by: [id number] Admin: 11/14/19 11:26 Dose: 17 gm Documented by: [id number] Admin: 11/14/19 05:47 Dose: 17 gm Documented by: [id number]
--- NOTE | 2019-11-15 09:20 | Orthopedic Progress Note ---
Date of Service November 15, 2019 Assessment & Plan (1) Neurogenic claudication due to lumbar spinal stenosis: Admission and Anticipated Discharge Date Admission Date: November 13, 2019 At this time we will continue physical therapy monitor MARCELINO output anticipate discharge home tomorrow. Subjective Back pain controlled leg pain markedly improved. Physical Exam Physical Exam: Patient is ambulating without difficulty good strength testing. Results & Data ([facility]) Vital Signs (Past 12 Hours) Vital Signs Temp Pulse Resp BP Pulse Ox 11/15/19 08:00 36.6 C 57 L 16 119/74 94 11/14/19 23:00 36.7 C 68 18 116/71 96
[2019-11-15] MEDS: GABAPENTIN 300 MG CAP PO SCH (20:52)
[2019-11-15] MEDS: METOPROLOL SUCC 50MG EXT REL TAB PO SCH (20:53)
[2019-11-15] MEDS: AMLODIPINE BESYLATE 5 MG TAB PO SCH (20:53)
[2019-11-15] MEDS: ATORVASTATIN 10 MG TAB PO SCH (20:53)
[2019-11-15] MEDS: CALCIUM CARBONATE 1250MG TAB PO SCH (20:54)
[2019-11-15] MEDS: DOCUSATE SODIUM/SENNA 50/8.6MG TAB PO SCH (20:54)
[2019-11-16 06:00] LABS: Hematocrit (blood only) 31.9 % (37-47); Hemoglobin 10.4 g/dL (12.0-16.0)
[2019-11-16] MEDS: DEXAMETHASONE SOD PHOSPHATE 8 MG in SYRINGE 0 ML IV SCH (08:22)
[2019-11-16] MEDS: MULTIVITAMIN TAB PO SCH (08:23)
[2019-11-16] MEDS: CHOLECALCIFEROL 1,000 UNITS 25 MCG TAB PO SCH (08:23)
--- NOTE | 2019-11-16 08:45 | Discharge Summary ---
Date of Service November 16, 2019 Admission HPI Per Admitting Provider This is a 64-year-old female well-known to me the presents with chronic persistent back and leg pain after failing course of nonoperative care is here for surgical intervention. Principal Diagnosis Lumbar spinal stenosis with neurogenic claudication Discharge Data Allergies Allergy/AdvReac Type Severity Reaction Status Date / Time Iodinated Contrast Media Allergy itchy Verified 11/13/19 06:15 Consultations 11/13/19 11:24 Consult Case Management - Discharge Planning Routine Consult Hospitalist Routine Procedures Performed Operation Date: 11/13/19 07:45 Actual Procedures p L3-S1 Decompression Fusion, Spinal Cord Monitoring(Not Applicable) - Estevan Castillo DO s L4-L5 Hardware Removal(Not Applicable) - Estevan Castillo DO Ordered Studies 11/13/19 07:45 FL fluoroscopy <1hr Routine FL lumbar spine 2-3V Routine Hospital Course (1) Neurogenic claudication due to lumbar spinal stenosis: Patient underwent lumbar decompression fusion tolerated this well was taken to the orthopedic floor possibly. Postop day 1 she was up and ambulating progressed to postop day #2 and 3 MARCELINO drain decreasing probably. Excellent strength testing. Pain well controlled. Subsequent discharge home. Discharge orders instructions from the chart for further review. Total Time Total Time Spent Total Time Spent (In Minutes): 20 minutes Discharge Plan Discharge Items Patient Disposition: Home - Self-Care Reason For Visit: Spinal Stenosis, Lumbar Region with Neurogenic Cla Discharge Diagnosis: lumbar stensis Activity: As commented below Non-emergency contact: Primary Care Provider Call non-emergency contact if: you have any medication questions Follow-up/Referrals: Alan Devine [Primary Care Provider] - Diet: Regular Addtl Attending Provider Instructions: ACTIVITY RECOMMENDATIONS: SELF CARE INSTRUCTIONS AFTER THORACIC/LUMBAR FUSIONS 1. You may walk to your tolerance. It is good exercise for your legs and back. Expect some back and intermittent leg aches and pains. 2. You may perform "counter-top" level activities (make a sandwich, conner with a project, etc.). 3. No bending or lifting of more than 10 pounds or back twisting of any nature (roll like a log when turning in bed). 4. You may ride in a car for 20-30 minutes at a time. No driving until after your first visit with your doctor. 5. Frequent changes of position and restricting sitting to 30 minutes at a time will help limit the amount of back spasms and stiffness you may experience. 6. You may discontinue the use of ambulatory aids (cane, crutches, etc.) once your strength and confidence allow. 7. You may special machine stitcher the shower and let water strike your incision when you arrive home at least once daily. Do not take a tub bath, sit in a hot tub or go into a swimming pool until after your first recheck in the office. SPECIAL CARE INSTRUCTIONS: VERY IMPORTANT TO READ AND REVIEW A. Your surgical incision has been closed with a cosmetic suture under the skin that will dissolve in about 6 weeks. In 14 days, you can use a pair of clean scissors and cut the suture that is left outside of the skin at the ends of your incision. 1. The small skin tapes can be removed 7 days after surgery if they have not fallen off by that point. 2. You may keep the wound open to air as much as possible to promote healing after post-op day number 5 unless told otherwise by your doctor. 3. If you think the wound looks like it is becoming infected (redness or worsening drainage) and/or you are experiencing fever, chill or worsening back pain and muscle spasms, contact the office so that we may evaluate you as soon as possible. B. Complications are uncommon, but please contact us if you have any signs or symptoms of: 1. wound infection (fever higher than 102.5 degrees F, redness, separation of wound, drainage, or increasing pain from the incision) 2. blood clots in legs (pain, swelling, redness and warmth in legs) 3. urinary tract infection (fever higher than 102.5 degrees F, burning upon urination or increased frequency of urination) 4. nerve problems (inability to walk on your toes or heels, numbness, loss of bowel or bladder control) 5. any other symptoms that concern you C. Please call the office at if you have any concerns or questions about your operation or recovery. D. No smoking! Smoking drastically decreases the chance of a solid fusion. E. Do not take any anti-inflammatory medications (Indocin, Advil, Motrin, Aspirin, Naprosyn, etc.) as these may inhibit the chance of a solid fusion. Tylenol is okay to take for pain. MANAGING PAIN AFTER SPINAL SURGERY 1. Narcotic medication is intended for short-term use and will be provided for surgical pain. Surgical pain usually lasts for a period of 4-6 weeks. Narcotic medication includes Percocet, Vicodin, Darvocet, Tylenol #3 or Lortab. 2. Longer-term pain is more appropriately treated with non-narcotic medication such as Tylenol ES. 3. Muscle spasm is not appropriately treated with narcotics. Muscle relaxers such as Soma, Flexeril or Skelaxin can be used along with Tylenol ES. 4. Remember that we all live with some "aches and pains". This is not unusual or uncommon after an injury or as we get older. a. Back pain is expected and may include muscle spasms for 4 to 6 weeks after surgery. The pain should gradually improve. If the pain worsens for no apparent reason, please contact the office. b. Intermittent leg pain may also be experienced and should not be concerned about unless it worsens for no apparent reason. If so, please contact the office. 5. We will provide appropriate medication within the normal guidelines of their prescribed use. We will also be very cautious and aware of potential abuse and extended duration of patients' medication needs. a. Pain medications are for your comfort and to assist with sleep and rest so that the tissue can heal. They are not provided in order to return to normal activity and should not be used through the day. To do so or worsening pain at night can result from ongoing tissue damage and development of tolerance to the prescribed medicine. 6. Please allow 2-3 days to process refills. Prescriptions will not be mailed but must be picked up at the office. FOLLOW UP VISIT: Keep your scheduled follow-up appointment. Any questions, please call the office at . Pending Studies at Discharge: No Stand-Alone Forms: My [employer], Smoking Cessation Medications and DC Order Prescriptions: New tramadol 50 mg tablet 50 mg PO Q6H PRN (Reason: pain, moderate) Qty: 20 RF: 0 oxycodone 5 mg tablet 5 mg PO Q6H PRN (Reason: pain, severe) Qty: 20 RF: 0 Continued cholecalciferol (vitamin D3) [Vitamin D3] 25 mcg (1,000 unit) Capsule 25 mcg PO BID RF: 0 atorvastatin 10 mg Tablet 10 mg PO HS RF: 0 metoprolol succinate 50 mg Tablet Extended Release 24 Hr 50 mg PO HS RF: 0 amlodipine 10 mg Tablet 10 mg PO HS RF: 0 gabapentin 300 mg Capsule 300 mg PO HS RF: 0 lisinopril-hydrochlorothiazide 20-25 mg Tablet 1 tab PO QAM RF: 0 multivitamin Tablet 1 tab PO QAM RF: 0 calcium carbonate [Calcium 600] 600 mg calcium (1,500 mg) Tablet 600 mg PO HS RF: 0 Discharge Orders: Discharge Order (Routine); Ordered 11/16/19 Ordered By: Estevan Castillo Admission Data Admit Date/Time: 11/13/19 10:40 Attending Provider: Estevan Castillo Admit Provider: Estevan Castillo Primary Care Provider: Alan Devine Other Providers: Lew Hankins ; Lala Ovalle
--- NOTE | 2019-11-16 09:01 | Hospitalist Progress Note ---
Date of Service November 16, 2019 Assessment & Plan (1) Status post lumbar surgery: Post op day# 3 S/P removal instrumentation L4-L5, decompression L2-S1 & fusion L3-S1 by Dr Castillo EBL 250ml; MARCELINO drain 775ml tolerated procedure well Pt to be discharged to home today continue to follow therapy and activity guidelines per Dr. Castillo Pain/wound management per Dr. Castillo (2) Anemia: pre op hgb 14, h&H 10.4 and 31.9 likely in setting of acute blood loss anemia as well as dilutional component (3) Hypomagnesemia: mag 1.7 oral mag supplementation ordered (4) Leukocytosis: resolved (5) Hypertension: blood pressure continues to be well controlled, mildy elevated today 154/76 Continue metoprolol succinate, amlodipine with parameters Resume lisinopril/HCTZ (6) Hyperlipidemia: Continue atorvastatin DVT Prophylaxis SCDs per ortho Disposition D/C to home today Follows with Dr Devine for routine care Pt was seen and care coordinated with Dr Ovalle. See addendum Thank you for this consultation. We will follow the patient with you during their hospital stay. You can reach a [facility] via pager @ [phone]. Admission and Anticipated Discharge Date Admission Date: November 13, 2019 Supervising Physician Co-Signing Physician Notes Attending addendum The patient was seen and examined in medical floor She is a status post lumbar procedure Complains to have minimal pain at surgery site and denies any other significant symptoms On examination No apparent distress sitting on a chair Hemodynamically stable Chestclear HeartS1-S2, regular Abdomenbenign Extremities1+ edema bilaterally Her labs and imaging studies reviewed Agree with assessment and plan as outlined above by DELBERT Scott Dr Subjective Patient was seen and examined in room 324. Follow-up lumbar surgery by Dr. Castillo. She is doing well sitting up at bedside eating breakfast. Plan is to be discharged this morning. She overall feels well. She slept well last evening. She denies any fever, chills, sweats, dizziness, lightheadedness, shortness of breath, chest pain, nausea, vomiting. She is passing gas. She moved bowels yesterday. Therapy is going well. Review of Systems Review of Systems: All systems reviewed & are unremarkable except as noted in HPI & below Physical Exam Physical Exam: Gen: WD/WN, female, NAD, A&O x3 HEENT: Normocephalic, atraumatic, conjunctivae moist, sclerae anicteric, mucous membranes moist. Lung: Clear to Auscultation bilaterally, no wheezes/rales/rhonchi Heart: Regular rate, regular rhythm, no murmurs, rubs, or gallops Abdomen: Soft, NT, ND +BS x 4 Extremities: No edema, TEDS in place, obese lower ext Skin: Warm, no rash, negative turgor. Dressing CDI, MARCELINO drain with serosanguineous drainage minimal Results & Data Results & Data ([facility]) Vital Signs (Past 12 Hours) Vital Signs Temp Pulse Resp BP Pulse Ox 11/16/19 08:00 36.7 C 70 16 154/76 H 99 11/15/19 23:32 36.7 C 65 17 131/73 96 Laboratory Results Short CBC 11/16/19 Range/Units 05:14 Hgb 10.4 L (12.0-16.0) g/dL Hct 31.9 L (37-47) % Medications Administered Current Inpatient Medications Acetaminophen (Acetaminophen 500 Mg Tab) 1,000 mg PO Q8H PRN PRN Reason: MILD Pain Scale 1,2,3 & Pre PT Stop: 12/13/19 13:59 Last Admin: 11/14/19 23:55 Dose: 1,000 mg Documented by: Al Hydrox/Mg Hydrox/Simethicone (Aluminum/Magnesium Susp 30 Ml Udc) 30 ml PO Q6H PRN PRN Reason: Dyspepsia Stop: 12/13/19 11:23 Amlodipine Besylate (Amlodipine Besylate 5 Mg Tab) 10 mg PO HS KEITH Stop: 12/13/19 20:59 Last Admin: 11/15/19 20:53 Dose: 10 mg Documented by: Atorvastatin Calcium (Atorvastatin 10 Mg Tab) 10 mg PO HS KEITH Stop: 12/13/19 20:59 Last Admin: 11/15/19 20:53 Dose: 10 mg Documented by: Bisacodyl (Bisacodyl 10 Mg Supp) 10 mg [place] DAILY PRN PRN Reason: Constipation Stop: 12/13/19 11:23 Calcium Carbonate (Calcium Carbonate 1250mg Tab) 1,250 mg PO HS KEITH Stop: 12/13/19 20:59 Last Admin: 11/15/19 20:54 Dose: 1,250 mg Documented by: Diphenhydramine HCl (Diphenhydramine Hcl 25 Mg Cap) 25 mg PO Q6H PRN PRN Reason: Allergic Rhinitis/Insomnia Stop: 12/13/19 11:23 Famotidine (Famotidine 20 Mg Tab) 20 mg PO Q12H PRN PRN Reason: Dyspepsia Stop: 12/13/19 11:23 Gabapentin (Gabapentin 300 Mg Cap) 300 mg PO KEITH Stop: 12/13/19 20:59 Last Admin: 11/15/19 20:52 Dose: 300 mg Documented by: Hydromorphone HCl (Hydromorphone Inj 0.5 Mg/0.5 Ml Syr) 0.5 mg IV Q3H PRN PRN Reason: MOD pain (scale 4-6) & Pre PT Stop: 11/27/19 11:23 Hydromorphone HCl (Hydromorphone Inj 1 Mg/Ml Syringe) 1 mg IV Q3H PRN PRN Reason: severe pain (scale 7-10) Stop: 11/27/19 11:23 Hydroxyzine HCl (Hydroxyzine Hcl 25 Mg Tab) 25 mg PO Q8H PRN PRN Reason: Anxiety Stop: 12/13/19 11:23 Lorazepam (Ativan) 0.5 mg in 1 mls @ 0.5 mls/min IV Q8H PRN PRN Reason: Sedation/Anxiety Stop: 12/13/19 11:23 Promethazine HCl 12.5 mg/ (Sodium Chloride) 50.5 mls @ 204 mls/hr IV Q6H PRN PRN Reason: Nausea &/or Vomiting Stop: 12/13/19 11:23 Dexamethasone Sodium Phosphate (8 mg/ Syringe) 2 mls @ 1 mls/min IV DAILY KEITH Stop: 12/15/19 08:59 Last Admin: 11/16/19 08:22 Dose: 1 mls/min Documented by: Influenza Virus Vaccine Quadrival (Do Not Administer Flu Vaccine) 1 ea N/A PRN PRN PRN Reason: Notification Stop: 12/13/19 11:23 Lorazepam (Lorazepam 0.5 Mg Tab) 0.5 mg PO Q8H PRN PRN Reason: Sedation/Anxiety Stop: 12/13/19 11:23 Magnesium Hydroxide (Magnesium Hydroxide Susp 30 Ml Udc) 30 ml PO DAILY PRN PRN Reason: Constipation Stop: 12/13/19 11:23 Metoclopramide HCl (Metoclopramide Hcl Inj 5 Mg/Ml 2 Ml Vial) 10 mg IV Q6H PRN PRN Reason: Nausea &/or Vomiting Stop: 12/13/19 11:23 Metoprolol Succinate (Metoprolol Succ 50mg Ext Rel Tab) 50 mg PO [facility] Stop: 12/13/19 20:59 Last Admin: 11/15/19 20:53 Dose: 50 mg Documented by: Multivitamins (Multivitamin Tab) 1 tab PO QAM [facility] Stop: 12/14/19 08:59 Last Admin: 11/16/19 08:23 Dose: 1 tab Documented by: Naloxone HCl (Naloxone Hcl 0.4 Mg/1 Ml Vial/Carp) 0.1 mg IV Q5M PRN; Protocol PRN Reason: Oversedation/Resp Depression Stop: 12/13/19 11:23 Ondansetron HCl (Ondansetron Inj 2 Mg/Ml 2 Ml Vial) 4 mg IV Q6H PRN PRN Reason: Nausea &/or Vomiting Stop: 12/13/19 11:23 Ondansetron HCl (Ondansetron 4 Mg Od Tab) 4 mg PO Q6H PRN PRN Reason: Nausea Stop: 12/13/19 11:23 Oxycodone HCl (Oxycodone Hcl Ir 5 Mg Tab (Immediate Release)) 5 - 10 mg PO Q4H PRN PRN Reason: Moderate-Severe Pain & Pre PT Stop: 11/27/19 11:23 Pneumococcal Polyvalent Vaccine (Do Not Administer Pneumococcal Vaccine) 1 ea N/A PRN PRN PRN Reason: Notification Stop: 12/13/19 11:23 Senna/Docusate Sodium (Docusate Sodium/Senna 50/8.6mg Tab) 2 tab PO [facility] Stop: 12/13/19 20:59 Last Admin: 11/15/19 20:54 Dose: Not Given Documented by: Sodium Biphosphate/Sodium Phosphate (Sod Phosphate/Sod Biphosphate Enema 132 Ml Btl) 132 ml [place] ONE PRN PRN Reason: Constipation Stop: 12/13/19 11:23 Tramadol HCl (Tramadol Hcl 50 Mg Tablet) 50 - 100 mg PO Q4H PRN PRN Reason: Moderate-Severe Pain & Pre PT Stop: 12/13/19 11:23 Last Admin: 11/15/19 15:57 Dose: 50 mg Documented by: Vitamin D (Cholecalciferol 1,000 Units 25 Mcg Tab) 1,000 units PO BID KEITH Stop: 12/13/19 20:59 Last Admin: 11/16/19 08:23 Dose: 1,000 units Documented by:
[2019-11-16] MEDS ORDERED: LISINOPRIL/HCTZ 20/25MG 1 TAB PO ONE (09:15)
[2019-11-16] MEDS: TRAMADOL HCL 50 MG TABLET PO PRN (10:17)
== END 2019-11-16 12:23 | disposition home or self-care (01) | DRG 454 ==
LOC: ASU 05:58 → 3E 10:40